=== PATIENT | female | born 1995 ===

== ENCOUNTER 2018-02-15 06:49 | Emergency (ER) | payer OTHER, BC ==
[2018-02-15 07:02] VITALS: BMI 42.9
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
[2018-02-15 07:56] VITALS: RESP 18; TEMP 98.4; O2SAT 98
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
[2018-02-15 09:59] VITALS: BP 127/78; PULSE 70
== END 2018-02-15 09:57 | disposition home or self-care (01) ==
LOC: ED 06:49
DX: M54.9 Dorsalgia, unspecified (principal); V43.52XA Car driver injured in collision with other type car in traffic accident, initial encounter; Y92.415 Exit ramp or entrance ramp of street or highway as the place of occurrence of the external cause